=== PATIENT | male | born 1960 | race African-American/Black ===

== ENCOUNTER 2020-01-01 13:26 | Emergency (ER) | payer MEDICAID ==
[~2020-01-01] VITALS: Ht 180.3 cm; Wt 86.0 kg
[2020-01-01 13:31] VITALS: BP 142/75
[2020-01-01] MEDS ORDERED: IBUPROFEN 600MG TABLET PO ONE (14:45)
== END 2020-01-01 15:04 | disposition home or self-care (01) ==
LOC: ER 13:26
DX: L03.011 Cellulitis of right finger (principal)
CPT/HCPCS: 99282; 99283

== ENCOUNTER 2020-12-31 15:08 | Emergency (ER) | payer MEDICAID ==
[~2020-12-31] VITALS: Ht 180.3 cm; Wt 89.0 kg
[2020-12-31] MEDS ORDERED: ONDA4TAB5 MT (22:47)
[2020-12-31 23:00] VITALS: BP 129/87
== END 2021-01-01 01:12 | disposition home or self-care (01) ==
LOC: ER 15:08
DX: R53.1 Weakness (principal); R11.2 Nausea with vomiting, unspecified; M79.18 Myalgia, other site; Z98.890 Other specified postprocedural states
CPT/HCPCS: 93005; 99283